=== PATIENT | male | born 1960 | race Caucasian/White ===

== ENCOUNTER 2019-02-10 04:08 | Emergency (ER) | payer OTHER ==
[~2019-02-10] VITALS: Ht 175.3 cm; Wt 100.0 kg
[2019-02-10] MEDS ORDERED: ondansetron/PF 4mg/2ml inj IV ONE (04:35)
[2019-02-10] MEDS ORDERED: normal saline 1000ML IV soln IVB ONE (04:35)
[2019-02-10] MEDS ORDERED: morphine 4 MG/ML inj SYRINge IV ONE (04:35)
[2019-02-10 05:41] LABS: BASOPHILS # (AUTO) 0.1 X10'3 (0-0.2); BASOPHILS % (AUTO) 1.2 % (0-1); EOSINOPHILS # (AUTO) 0.2 X10'3 (0-0.9); EOSINOPHILS % (AUTO) 3.2 % (0-6); HEMATOCRIT 44.9 % (42.0-52.0); HEMOGLOBIN 15.6 g/dl (14.0-17.9); LYMPHOCYTES # (AUTO) 1.8 X10'3 (1.1-4.8); LYMPHOCYTES % (AUTO) 37.8 % (21-51); MEAN CORPUSCULAR HGB CONC 34.8 g/dL (33.0-36.5); MEAN CORPUSCULAR VOLUME 89.1 FL (78-98); MEAN PLATELET VOLUME 8.4 FL (7.4-10.4); MONOCYTES # (AUTO) 0.4 X10'3 (0-0.9); MONOCYTES % (AUTO) 8.7 % (2-12); NEUTROPHILS # (AUTO) 2.4 X10'3 (1.8-7.7); NEUTROPHILS % (AUTO) 49.1 % (42-75); PLATELET COUNT 152 X10'3 (140-440); RED BLOOD COUNT 5.04 X10'6 (4.70-6.10); RED CELL DISTRIBUTION WIDTH 13.5 % (11.5-14.5); WHITE BLOOD COUNT 4.9 X10'3 (4.5-11.0)
[2019-02-10 05:45] LABS: CLARITY,URINE CLEAR (Clear); COLOR,URINE YELLOW (Yellow); GLUCOSE, URINE NEGATIVE (Neg); KETONES,URINE NEGATIVE (Neg); LEUKOCYTE ESTERASE ,URINE NEGATIVE (Neg); NITRITES, URINE NEGATIVE (Neg); OCCULT BLOOD,URINE NEGATIVE (Neg); PROTEIN,URINE NEGATIVE (Neg)
[2019-02-10 05:46] LABS: UA COLLECTION TYPE CLN CATCH MIDSTREAM
[2019-02-10 05:55] LABS: PARTIAL THROMBOPLASTIN TIME 30 SECONDS (22-32)
[2019-02-10 05:58] LABS: ALANINE AMINOTRANSFERASE 57 U/L (12-78); ALBUMIN 3.7 G/DL (3.4-5.0); ALBUMIN/GLOBULIN RATIO 1.1 (1.1-1.5); ALKALINE PHOSPHATASE 65 IU/L (46-116); ANION GAP 10 (8-16); ASPARTATE AMINO TRANSFERASE 35 U/L (10-37); BILIRUBIN,TOTAL 0.6 MG/DL (0.1-1.0); BLOOD UREA NITROGEN 16 MG/DL (7-18); BUN/CREATININE RATIO 13.9 (5.4-32.0); CALCIUM 8.9 MG/DL (8.5-10.1); CHLORIDE 105 MMOL/L (99-107); CREATININE 1.15 MG/DL (0.60-1.10); ETHANOL < 0.010 GM/DL (0.0-0.010); GLUCOSE 125 MG/DL (70-104); LIPASE 163 U/L (73-393); MAGNESIUM 1.8 MG/DL (1.5-2.4); POTASSIUM 4.1 MMOL/L (3.5-5.1); SODIUM 140 MMOL/L (135-145); TOTAL CARBON DIOXIDE 25.1 MMOL/L (24-32); TOTAL PROTEIN 7.2 G/DL (6.4-8.2); eGFR 65 ML/MIN
[2019-02-10 06:07] LABS: URINE AMPHETAMINE SCREEN POSITIVE (Neg); URINE BARBITUATE SCREEN NEGATIVE (Neg); URINE BENZODIAZEPINES SCREEN NEGATIVE (Neg); URINE CANNABINOID SCREEN NEGATIVE (Neg); URINE COCAINE SCREEN NEGATIVE (Neg); URINE METHADONE SCREEN NEGATIVE (Neg); URINE OPIATE SCREEN POSITIVE (Neg); URINE PHENCYCLIDINE SCREEN NEGATIVE (Neg)
[2019-02-10] MEDS ORDERED: iohexol 300mg/ml 100ml inj. ONE (06:08)
--- NOTE | 2019-02-10 06:16 | NUR ---
PATIENT RECEIVED ON BED.
--- NOTE | 2019-02-10 06:37 | NUR ---
PATIENT TO CT.
--- NOTE | 2019-02-10 06:44 | NUR ---
patient back in the room.
[2019-02-10] MEDS ORDERED: ondansetron/PF 4mg/2ml inj IV STA (06:50)
--- NOTE | 2019-02-10 06:50 | NUR ---
still reports nausea,received new order from Dr. Aguila.
[2019-02-10 08:18] VITALS: BP 152/97
== END 2019-02-10 08:20 | disposition home or self-care (01) ==
LOC: ER 04:09
DX: F15.10 Other stimulant abuse, uncomplicated (principal); R14.0 Abdominal distension (gaseous); R10.9 Unspecified abdominal pain; R30.0 Dysuria; R39.11 Hesitancy of micturition; I10 Essential (primary) hypertension; Z87.442 Personal history of urinary calculi; Z98.890 Other specified postprocedural states; Z88.5 Allergy status to narcotic agent
CPT/HCPCS: 36415; 74177; 80053; 80305; 80320; 81003; 83605; 83690; 83735; 84145; 85025; 85610; 85730; 87040; 96374; 96375; 96376; 99284; J2270; J2405; J7030; Q9967